=== PATIENT | male | born 1955 | race Caucasian/White ===

== ENCOUNTER 2024-06-29 01:06 | Emergency (ER) | payer SELFPAY ==
[2024-06-29] VITALS (49 sets, daily range): BP systolic 86–113; BP diastolic 64–86; PULSE 83–118; RESP 12–24; TEMP 36.4–36.8; O2SAT 89–100
--- NOTE | ~2024-06-29 | XR_ITS ---
EXAMINATION: XR hip LT 2V w AP pelvis DATE: 06/29/2024 02:06 INDICATION: Left hip pain. TECHNIQUE: An anteroposterior view of the pelvis and 2 views of left hip on a total of 4 radiographs were obtained. COMPARISON: None. FINDINGS: There is a subcapital fracture of left femoral neck. The distal fracture fragment [address] 50 degrees varus angulation and 9 mm anterior displacement. There is mild osteoarthritis of the h ips. IMPRESSION: 1. Subcapital fracture of left femoral neck. 2. Mild osteoarthritis of the hips. Reviewed, dictated and finalized at location A. LOCATOR
--- NOTE | ~2024-06-29 | XR_ITS ---
EXAMINATION: XR chest 1V DATE: 06/29/2024 02:06 INDICATION: Hypoxia. TECHNIQUE: A single frontal view of the chest was obtained on 2 radiographs. COMPARISON: None. FINDINGS: The lungs are hyperexpanded with lucencies with a lower lung predominance, consistent with emphysema. Left lateral costophrenic angle is excluded. No pleural effusion or pneumothorax. The hear t size is normal. IMPRESSION: 1. Emphysema. The lower lung predominance may be seen with alpha-1 antitrypsin deficiency. Reviewed, dictated and finalized at location A. WARE LEAD
[2024-06-29 01:45] LABS: Hematocrit 49.5 % (37.0-46.0); Hemoglobin 15.8 g/dL (12.4-15.3); Mean Corpuscular HGB Conc 31.9 g/dL (32-36); Mean Corpuscular Hemoglobin 30.9 pg (27.0-31.0); Mean Corpuscular Volume 96.9 fL (78.0-102.0); Mean Platelet Volume 9.6 fl (8.7-11.0); Platelet Count Result 214 K/mm3 (150-420); Red Blood Count 5.11 M/mm3 (4.70-6.10); Red Cell Distribution Width 13.1 % (11.6-14.4); White Blood Count 14.6 K/mm3 (4.8-10.8)
--- NOTE | 2024-06-29 02:00 | PC.NURSE ---
Pt states he is DNR and doesn't want anything done. ERP informed of pts wishes.
[2024-06-29 02:04] LABS: Alanine Aminotransferase 34 U/L (16-63); Albumin Level 3.3 g/dL (3.4-5.0); Alkaline Phosphatase 125 U/L (46-116); Anion Gap 14 mmol/L (4-12); Aspartate Amino Transferase 52 U/L (15-37); Bilirubin,Total 1.9 mg/dL (0.00-1.00); Blood Urea Nitrogen 34 mg/dL (7-18); Carbon Dioxide 28 mmol/L (21-32); Chloride 99 mmol/L (98-108); Estimated CRCL calculation 33 ml/min; Estimated Glomerular Filt Rate 35; Glucose 154 mg/dL (70-99); Osmolality Calculated 302 mOsm/kg (285-295); Sodium 141 mmol/L (136-145); Total Protein 6.7 g/dL (6.4-8.2)
--- NOTE | 2024-06-29 02:28 | PC.NURSE ---
Pt resting, report from Xray received and pt wants to go to [facility] if possible, calls made for transfer.
[2024-06-29 02:29] LABS: Bilirubin Urine 2+ (Negative); Blood Urine Negative (Negative); Glucose Urine UA Negative (Negative); Ketones Urine Trace (Negative); Leukocyte Esterase Ur Negative LEU/UL (Negative); Nitrate Urine Negative (Negative); Protein Urine 1+ (Negative); Specific Grav Ur >= 1.030 (1.010-1.020); pH Urine 5.5 (5.0-8.0)
--- NOTE | 2024-06-29 02:41 | ED.FALL ---
HPI - Fall General Chief Complaint: Fall Stated Complaint: Fall Time Seen by Provider: 06/29/24 01:30 History of Present Illness HPI Narrative: Patient is not the best historian but he does report that he fell approximately 2 days ago from standing and has been having pain in his hip and leg since that time. The patient has essentially been laying on his couch since the fall. He eventually tried to get up to go to the bathroom today and suffered another fall prompting his stepson with whom he lives to call 911 for further assistance. Patient sources severe pain in his left leg with any movement whatsoever. Patient states that he never goes to the doctor and does not know if he has any medical problems. He was noted to be hypoxic by EMS and has been started on a couple L of oxygen. patient denies having any fever chills. Denies any chest pain or shortness of breath. denies any other injuries in the fall. Patient states adamantly and repeatedly that he is a do not resuscitate. Related Data Home Medications ?Medication ?Instructions ?Recorded ?Confirmed ?Last Taken ?Type No Home Medications 06/29/24 06/29/24 Unknown History Allergies Allergy/AdvReac Type Severity Reaction Status Date / Time No Known Allergies Allergy Verified 06/29/24 01:32 Exam Narrative: GEN: Awake, alert, cachectic, elderly HEENT: No rhinorrhea noted, dry mucous membrane, No scleral icterus or conjunctival injection. CV: Normal rate, regular rhythm, S1S2 no M/G/R. 2+ distal pulses all extremities. No peripheral edema noted. PULM: Non-labored respiration. Clear to auscultation bilaterally. No wheezes, rales, rhonchi. GI: Abdomen soft, non -tender to palpation. No rigidity, distention or guarding.? left leg is shortened and rotated with pain on palpation of the hip Course Vital Signs Vital signs: Vital Signs Temperature 36.4 C 06/29/24 01:10 Pulse Rate 106 H 06/29/24 01:10 Respiratory Rate 06/29/24 01:10 Blood Pressure 109/82 06/29/24 01:10 Pulse Oximetry 89 L 06/29/24 01:10 Oxygen Delivery Room Air 06/29/24 01:10 Temperature 36.4 C 06/29/24 01:10 Pulse Rate 106 H 06/29/24 01:10 Respiratory Rate 20 06/29/24 01:10 Blood Pressure 109/82 06/29/24 01:10 Pulse Oximetry 89 L 06/29/24 01:10 Oxygen Delivery Room Air 06/29/24 01:10 MDM - Fall MDM Narrative Medical decision making narrative: Patient was placed in Room #:? 2 Independent Historian: none External Source Review: none Differential diagnosis includes but not limited to:? this patient has a fractured left hip. He has the pre renal BC from not eating or drinking for the past 2 days. portable chest x-ray is not the best view but seems consistent with COPD. he has hypokalemia. He is in a complex cardiac rhythm that I think is most likely a sinus rhythm with a conduction delay and frequent PVCs. His troponin is elevated at 190.5. the patient has repeatedly denied chest pain and starting heparin drip in a patient with a hip fracture is high risk. I strongly suspect this is type 2 ischemia or elevated troponin due to BC so will hold off on heparin drip. CK is 960. Medications were Reviewed: home medications Independently Interpreted by me: x-rays, labs, and EKG Medications, treatment, ED course: fluid resuscitation and potassium repleted Social situation impacting patients care: patient lives with his stepson is unclear if this is a safe housing situation for him Shared decision making:? patient is clear that he is a DNR but he understands that he needs a surgery in order to not have severe pain in his hip Accepting physician: Dr. Suero DISCHARGE DIAGNOSIS: L hip fracture, BC, COPD, Cardiac arrhythmia type II NSTEMI. DISPOSITION: ED to ED transfer to [facility] [place] CONDITION AT DISCHARGE:? stable Lab Data 06/29/24 01:32 06/29/24 01:32 Labs: Lab Results 06/29/24 Range/Units 01:32 WBC 14.6 H (4.8-10.8) K/mm3 RBC 5.11 (4.70-6.10) M/mm3 Hgb 15.8 H (12.4-15.3) g/dL Hct 49.5 H (37.0-46.0) % MCV 96.9 (78.0-102.0) fL MCH 30.9 (27.0-31.0) pg MCHC 31.9 L (32-36) g/dL RDW 13.1 (11.6-14.4) % Plt Count 214 (150-420) K/mm3 MPV 9.6 (8.7-11.0) fl Sodium 141 (136-145) mmol/L Potassium 3.0 L (3.5-5.1) mmol/L Chloride 99 (98-108) mmol/L Carbon Dioxide 28 (21-32) mmol/L Anion Gap 14 H (4-12) mmol/L BUN 34 H (7-18) mg/dL Creatinine 1.92 H (0.70-1.30) mg/dL Estim Creat Clear Calc 33 ml/min Estimated GFR 35 L (59 - ) Glucose 154 H (70-99) mg/dL Calculated Osmolality 302 H (285-295) mOsm/kg Calcium 9.0 (8.5-10.1) mg/dL Total Bilirubin 1.9 H (0.00-1.00) mg/dL AST 52 H (15-37) U/L ALT 34 (16-63) U/L Alkaline Phosphatase 125 H (46-116) U/L Total Protein 6.7 (6.4-8.2) g/dL Albumin 3.3 L (3.4-5.0) g/dL Urine Color Pending Urine Appearance Pending Urine pH Pending Ur Specific [place] Pending Urine Protein Pending Urine Glucose (UA) Pending Urine Ketones Pending Ur Blood (Man) Pending Urine Nitrate Pending Urine Bilirubin Pending Urine Urobilinogen Pending Leukocyte Esterase Rfl Pending Discharge Plan Discharge Clinical Impression: Fracture of hip, left, closed, BC (acute kidney injury), Arrhythmia, Hypoxia Patient Disposition: Acute Care Hospital Condition: Stable Instructions: Hip Fracture (ED) Additional Instructions: your being transferred to a higher level of care 1st and foremost for evaluation by Surgical team for your hip fracture but also for monitoring of your kidney function and your heart Patient Language: Uzbek Prescriptions: No Action No Home Medications Follow-up/Referrals: UNKNOWN,DOCTOR [Primary Care Provider] - Time of Disposition: 04:22
[2024-06-29 02:46] LABS: Add Urine Microscopic? YES; Appearance Urine Sl Cloudy (Clear); Color Urine Dark Orange (Yellow)
[2024-06-29 02:47] LABS: Amorphous Sediment Urine Moderate; Cellular Casts Urine Present /lpf; Hyaline Casts Urine 50+ /lpf; Mucus Urine Heavy /lpf; Other Sediment Urine Spermatazoa /hpf
--- NOTE | 2024-06-29 02:49 | ECG_ITS ---
Test Date: 2024-06-29 03:13:56 Measurements Intervals [place] Rate: 91 P: 86 AK: 136 QRS: -89 QRSD: 95 T: 95 QT: 329 QTc: 406 Interpretive Statements SINUS RHYTHM WITH MARKED SINUS ARRHYTHMIA WITH FREQUENT VENTRICULAR PREMATURE COMPLEXES RIGHT ATRIAL ENLARGEMENT LEFT ATRIAL ENLARGEMENT POSSIBLE RIGHT VENTRICULAR CONDUCTION DELAY ANTEROLATERAL INFARCT, AGE INDETERMINATE BORDERLINE ST-T WAVE ABNORMALITY- HIGH LATERAL LEADS BASELINE ARTIFACT- I, V1-V6 ABNORMAL ECG No previous ECG available for comparison Electronically Signed On 06-29-2024 07:14:10 CUT OFF [employer] by Roque Flores D.O.
[2024-06-29] MEDS: SODIUM CHLORIDE 0.9% IV 1,000 ML 999 ML IV CONT (03:05)
[2024-06-29] MEDS: KCL 20 MEQ/SW 100 ML 100 ML 50 MEQ IVPB (03:06)
[2024-06-29 03:46] LABS: Creatine Kinase 960 U/L (39-308)
[2024-06-29 03:47] LABS: Troponin I 190.5 ng/L (0.00-60.4)
[2024-06-29] MEDS: SODIUM CHLORIDE 0.9% IV 1,000 ML 150 ML IV CONT (04:47)
--- NOTE | 2024-06-29 04:58 | PC.NURSE ---
Pt resting, continuing to monitor, awaiting transport from EMS for transfer. [facility] called and stated it will be 3-4 hr wait until transfer is available.
[2024-06-29] MEDS: HYDROcodone/acetaminophen (*CRX) 5-325 MG TABLET 1 TAB PO (05:33)
--- NOTE | 2024-06-29 05:35 | PC.NURSE ---
Pt given po Welch for pain, continuing to await transfer which will be several hrs. Call placed to [facility] ED and updated on wait times for pt transfer.
--- NOTE | 2024-06-29 06:23 | PC.NURSE ---
Pt watching TV, he states the [place] helped w/ his pain. Still awaiting transfer truck to take pt to [facility].
--- NOTE | 2024-06-29 07:01 | PC.NURSE ---
Report given to JAIME Sen
[2024-06-29] MEDS: MORPHINE SULFATE (*CRX) 2 MG/ML INJ IV PUSH (07:46)
[2024-06-29] MEDS: SODIUM CHLORIDE 0.9% IV 1,000 ML 100 ML IV CONT (09:24)
--- NOTE | 2024-06-29 10:35 | PC.NURSE ---
pt loaded to ems cot with rn and 2 ems staff. pt stable and alert.
== END 2024-06-29 10:35 | disposition short-term general hospital (02) ==
PROVIDERS: Emergency Provider Family Medicine
DX: S72.002A Fracture of unspecified part of neck of left femur, initial encounter for closed fracture (principal); N17.9 Acute kidney failure, unspecified; I49.9 Cardiac arrhythmia, unspecified; R09.02 Hypoxemia; W19.XXXA Unspecified fall, initial encounter
CPT/HCPCS: 36415; 71045; 73502; 80053; 81001; 82550; 84484; 85027; 93005; 96361; 96365; 96366; 96375; 99285; A9270; J2270; J3480; J7030